=== PATIENT | male | born 1995 | race Caucasian/White ===

== ENCOUNTER 2021-03-06 07:39 | Emergency (ER) | payer OTHER ==
[~2021-03-06] VITALS: Ht 177.8 cm; Wt 86.2 kg
[~2021-03-06 07:39] MED LIST: CEPHALEXIN500 MG PO; IBUPROFEN200 M1 PO; NORCO 5-325 TA1 EACH PO; SULFAMETHOXAZO1 EAC1 PO
[2021-03-06] MEDS ORDERED: ACETAMINOPHEN500 MG PO (07:54)
== END 2021-03-06 09:20 | disposition home or self-care (01) ==
LOC: ED 07:39
DX: S20.219A Contusion of unspecified front wall of thorax, initial encounter (principal); W22.8XXA Striking against or struck by other objects, initial encounter
CPT/HCPCS: 71046; 99284-25

== ENCOUNTER 2025-03-27 08:54 | Emergency (ER) | payer OTHER ==
[~2025-03-27] VITALS: Ht 180.3 cm; Wt 90.7 kg
[~2025-03-27 08:54] MED LIST changes: +ACETAMINOPHEN500 MG PO
[2025-03-27] MEDS ORDERED: IBU600 MG PO (09:54)
[2025-03-27] MEDS ORDERED: CYCLOBENZAPRINE10 MG PO (09:54)
[2025-03-27] MEDS ORDERED: LIDODERM1 EACH TOP (09:54)
[2025-03-27 10:00] VITALS: BP 146/61
[2025-03-27] MEDS ORDERED: CYCLOBENZAPRINE HCL 10 MG TAB PO ONE (10:15)
== END 2025-03-27 10:00 | disposition home or self-care (01) ==
LOC: ED 08:54
DX: M54.50 Low back pain, unspecified (principal); X50.0XXA Overexertion from strenuous movement or load, initial encounter
CPT/HCPCS: 99283

== ENCOUNTER 2025-03-31 01:07 | Emergency (ER) | payer OTHER ==
[~2025-03-31] VITALS: Ht 180.3 cm; Wt 96.3 kg
[~2025-03-31 01:07] MED LIST changes: +CYCLOBENZAPRINE10 MG PO; +IBU600 MG PO; +LIDODERM1 EACH TOP
--- OUTSIDE RECORDS SUMMARY | 2025-03-31 01:12 | XMS ---
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 E.D. VISIT COUNT (12 MO.) 2 KRISTEN Mei TOTAL 2 NOTE: Visits indicate total known visits. ED/UCC VISIT TRACKING (12 MO.) 03/31/2025 01:07 [facility] [place] TYPE: Emergency COMPLAINT: - BACK PAIN 03/27/2025 08:55 [facility] [place] TYPE: Emergency COMPLAINT: - BACK PAIN DIAGNOSES: - Low back pain, unspecified - Overexertion from strenuous movement or load, initial encounter INPATIENT VISIT TRACKING (12 MO.) No inpatient visits to display in this time frame [email or web address]
[2025-03-31] MEDS ORDERED: DEXAMETHASONE SOD PHOS 10 MG/ML VIAL IM ONE (01:15)
[2025-03-31] MEDS ORDERED: HYDROmorphone HCL 1 MG/ML SYR IM ONE (01:15)
[2025-03-31] MEDS ORDERED: HYDROCODON-ACE1 EA10 PO (02:36)
[2025-03-31] MEDS ORDERED: HYDROCODONE BIT/ACETAMINOPHEN 5/325 MG 1 TAB HOME.PACK PO ONE (02:45)
[2025-03-31] MEDS ORDERED: methylPREDNISolone 4 MG HOME.PACK PO ONE (02:45)
[2025-03-31 03:19] VITALS: BP 142/78
== END 2025-03-31 03:21 | disposition home or self-care (01) ==
LOC: ED 01:07
DX: M51.360 Other intervertebral disc degeneration, lumbar region with discogenic back pain only (principal); G57.02 Lesion of sciatic nerve, left lower limb; Z79.899 Other long term (current) drug therapy
CPT/HCPCS: 72131; 96372; 99284-25; A9270; J1100; J1171

== ENCOUNTER 2025-04-07 08:30 | Emergency (ER) | payer OTHER ==
[~2025-04-07] VITALS: Ht 180.3 cm; Wt 100.0 kg
[~2025-04-07 08:30] MED LIST changes: +HYDROCODON-ACE1 EA10 PO
--- OUTSIDE RECORDS SUMMARY | 2025-04-07 08:31 | XMS ---
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 - 2 Visits in 30 Days CARE PROVIDERS -, [facility]ist: Export Manager [facility] PHONE: [phone] -Kristin- Dentist: Export Manager Current [facility] PHONE: [phone] [facility]: [facility] PHONE: [phone] [facility] has no Care Guidelines for this patient. E.D. VISIT COUNT (12 MO.) 3 KRISTEN Mei TOTAL 3 NOTE: Visits indicate total known visits. ED/UCC VISIT TRACKING (12 MO.) 04/07/2025 08:30 [facility] [place] TYPE: Emergency COMPLAINT: - BACK PAIN 03/31/2025 01:07 [facility] [place] TYPE: Emergency COMPLAINT: - BACK PAIN DIAGNOSES: - Lesion of sciatic nerve, left lower limb - Low back pain, unspecified - Other terminal operations supervisor (current) drug therapy - OTHER INTVRT DISC DEGEN, LUM RGN WITH DISCOG BACK 03/27/2025 08:[address] [facility] [place] TYPE: Emergency COMPLAINT: - BACK PAIN DIAGNOSES: - Low back pain, unspecified - Overexertion from strenuous movement or load, initial encounter INPATIENT VISIT TRACKING (12 MO.) No inpatient visits to display in this time frame [email or web address]
[2025-04-07 09:17] VITALS: BP 127/95
== END 2025-04-07 09:19 | disposition home or self-care (01) ==
LOC: ED 08:30
DX: M54.50 Low back pain, unspecified (principal)
CPT/HCPCS: 99283